=== PATIENT | male | born 1990 | race Native Hawaiian/Other Pacific Islander ===

== ENCOUNTER 2020-09-01 12:27 | Emergency (ER) | payer OTHER ==
--- NOTE | 2020-09-01 14:23 | CT Report ---
PROCEDURE: HEAD WO INDICATIONS: worst KLEIN of life at 10am today TECHNIQUE: Noncontrast 4.5 mm thick angled axial sections acquired from the foramen magnum to the vertex. For r adiation dose reduction, the following was used: automated exposure control, adjustment of mA and/or kV according to patient size. COMPARISON: None. FINDINGS: Image quality: Excellent. CSF spaces: Basal cisterns are patent. No extra-axial fluid collections. Ventricles are normal in size and shape. Brain: No midline shift. No intracranial masses or hemorrhage. Boudreaux-white matter interface is norm al. Skull and face: Calvarium and visualized facial bones are intact, without suspicious lesions. Sinuses: Visualized sinuses and mastoids are clear. IMPRESSION: Unremarkable CT brain. No intracranial hemorrhage or mass effect. Reviewed by: Abdelrahman Diaz MD on 09/01/2020 1:22 PM [email or web address] Approved by: Abdelrahman Diaz MD on 09/01/2020 1:22 PM [facility] Station ID: [id number]
--- NOTE | 2020-09-01 14:25 | ED Physician Documentation ---
History of Present Illness - Stated complaint Stated Complaint: HEADACHE - Chief complaint Chief Complaint: Neuro - History obtained from History obtained from: Patient - Additonal information Additional information: 20-year-old man with no past medical history presents with sudden onset 10 out of 10 headache above bilateral eyes, nonradiating, associate with nausea and photophobia while at work today around 10 AM. It was constant, aching, tapered down and improved after taking Tylenol an hour ago said it is now at 4 out of 10. Denies nausea at present. No history of migraines. Denies head injury, neck pain, fever, neurological deficit. Review of Systems Ten Systems: 10 systems reviewed and negative Constitutional: denies: Fever, Chills Eyes: reports: Photophobia. denies: Loss of vision, Decreased vision Ears: denies: Ear pain Musculoskeletal: denies: Neck pain Neurologic: reports: Headache. denies: Head injury, LOC PD PAST MEDICAL HISTORY - Past Medical History Past Medical History: No Cardiovascular: None Respiratory: None Neuro: None Endocrine/Autoimmune: None GI: None : None HEENT: None Psych: None Musculoskeletal: None Derm: None - Past Surgical History Past Surgical History: Yes Ortho: Other - Present Medications Home Medications: Ambulatory Orders Medication Instructions Recorded Confirmed No Known Home Medications 09/01/20 09/01/20 - Allergies Allergies/Adverse Reactions: Allergies Allergy/AdvReac Type Severity Reaction Status Date / Time acetaminophen [From Percocet] Allergy Hives Verified 09/01/20 12:37 oxycodone [From Percocet] Allergy Hives Verified 09/01/20 12:37 - Social History Does the pt smoke?: No Smoking Status: Current some day smoker Does the pt drink ETOH?: Yes Does the pt have substance abuse?: No - Immunizations Immunizations are current?: Yes PD ED PE NORMAL - Vitals Vital signs reviewed: Yes - General General: Alert and oriented X 3, No acute distress, Well developed/nourished - HEENT HEENT: Atraumatic, PERRL, EOMI, Moist mucous membranes, Pharynx benign - Neck Neck: Supple, no meningeal sign - Derm Derm: Normal color, Warm and dry - Neuro Neuro: Alert and oriented X 3, 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 Head CT noncontributory. Return precautions given and he will follow up with his primary doctor. Departure - Departure Disposition: 01 Home, Self Care Clinical Impression: Headache Condition: Good Instructions: ED Headache Tension Comments: You are seen in the emergency department for sudden onset headache. Your head CT was normal. Because your headache is improving and your neurologic exam is normal, I am going to discharge and have you follow-up with your primary doctor. Return to the emergency department if you have any new or worsening symptoms or other concerns. Forms: Activity restrictions
[2020-09-01 14:27] VITALS: BP 124/77
== END 2020-09-01 14:37 | disposition home or self-care (01) ==
LOC: EDBD 12:27 → ED 12:27
DX: R51.9 Headache, unspecified (principal); R11.0 Nausea; Z72.0 Tobacco use
CPT/HCPCS: 99282; 99284